=== PATIENT | male | born 2000 | race Caucasian/White ===

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

== ENCOUNTER 2025-04-24 09:36 | Outpatient (CLI) | payer OTHER, BC, SELFPAY ==
--- NOTE | 2025-04-24 | DI.RAD_ITS ---
Exam(s) XR THUMB RT EXAM: XR THUMB RT CLINICAL HISTORY: S60.011A contusion RT thumb w/o damage to nail, initial encounter. TECHNIQUE: 2D digital imaging was performed. COMPARISON: No exams were available for comparison FINDINGS: 3 views No evidence of fracture nor dislocation nor radiopaque foreign bodies. Bone density normal. No osseous lesions nor erosions. There appears to be a Band- Aid around the distal phalanx region. There is no gas in the soft tissues evident. IMPRESSION: No significant osseous findings. DATA REPOSITORY: RADIATION DOSE DELIVERED:
== END 2025-04-24 09:56 ==
LOC: DI 09:37
PROVIDERS: PCP Nurse Practitioner Family; Visit Provider Physician Assistant Medical
DX: S60.011A Contusion of right thumb without damage to nail, initial encounter (principal); X58.XXXA Exposure to other specified factors, initial encounter
CPT/HCPCS: 73140